=== PATIENT | male | born 1990 | race Caucasian/White ===

== ENCOUNTER 2016-08-14 20:21 | Emergency (ER) | payer MEDICAID ==
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
== END 2016-08-14 22:29 | disposition home or self-care (01) ==
LOC: JP.ED 20:21
DX: S06.0X9A Concussion with loss of consciousness of unspecified duration, initial encounter (principal); Z98.890 Other specified postprocedural states; W17.89XA Other fall from one level to another, initial encounter
CPT/HCPCS: 70450; 99284-25

== ENCOUNTER 2018-02-20 10:54 | Emergency (ER) | payer SELFPAY ==
[2018-02-20] MEDS ORDERED: Lidocaine 1% with EPINEPHrine 1:100,000 50 ML MDV SUBCUT STA (11:31)
[2018-02-20] MEDS ORDERED: Bacitracin Oint 1 GM U/D Packet TOP ONE (11:31)
[2018-02-20] MEDS ORDERED: Diphtheria,Pertussis(Acell),Tetanus Vaccine 0.5 ML SDV IM ONE (11:31)
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
== END 2018-02-20 12:14 | disposition home or self-care (01) ==
LOC: JP.ED 10:54
DX: S61.412A Laceration without foreign body of left hand, initial encounter (principal); W29.8XXA Contact with other powered hand tools and household machinery, initial encounter; Y99.0 Civilian activity done for income or pay; Z23 Encounter for immunization
CPT/HCPCS: 12002; 90471; 99283; 99283-25

== ENCOUNTER 2018-04-24 19:55 | Emergency (ER) | payer MEDICAID, OTHER ==
[2018-04-24] MEDS ORDERED: HYDROmorphone 1 MG/ML Syringe IM ONE (20:22)
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
--- NOTE | 2018-04-24 21:34 | CRLCT ---
Indication: Fall. Pain Technique: A noncontrast pelvic CT. Coronal and sagittal reformats were reviewed. Comparison: None available Findings: There is a partially imaged metallic juan j in the right femoral diaphysis. There is no evidence of an acute fracture or dislocation. There are osseous protuberances off of the anteromedial cortex of the left iliac wing which could be related to old trauma. The joint spaces are preserved. Impression: No evidence of an acute pelvic fracture or dislocation. Dictated by Ramon Wong MD @ 04/24/2018 9:30:27 PM Please note that all CT scans at this facility use dose modulation, iterative reconstruction, and/or weight-based dosing when appropriate to reduce radiation dose to as low as reasonably achievable. Dictated by: Ramon Wong MD @ 04/24/2018 21:33:53 (Electronically Signed)
== END 2018-04-24 21:48 | disposition home or self-care (01) ==
LOC: JP.ED 19:55
DX: S30.0XXA Contusion of lower back and pelvis, initial encounter (principal); V86.92XA Unspecified occupant of snowmobile injured in nontraffic accident, initial encounter
CPT/HCPCS: 72192; 96372; 99283; J1170